=== PATIENT | male | born 1985 | race American Indian/Alaskan Native ===

== ENCOUNTER 2021-08-17 12:51 | Inpatient (IN) | payer SELFPAY ==
--- NOTE | 2021-08-17 16:23 | Emergency Department Report ---
ED General Adult HPI - General Stated complaint: CHEST PAIN Time Seen by Provider: 08/17/21 16:23 - History of Present Illness Initial comments: Patient presents secondary to chest pain. He has had intermittent chest pain for the last several days. He describes it as "a funny feeling" in the left chest. He states his left arm feels like he has been lifting weights. Last night, his symptoms were constant. They have been constant starting last night and into today. He has not noticed any aggravating or alleviating factors. He does not feel short of breath. There is no cough or congestion. There is no travel or trauma. He has had no vomiting or diarrhea. He states that he just was not feeling right and decided he should come here to get seen. Is never had symptoms like this before. - Related Data Allergies Allergy/AdvReac Type Severity Reaction Status Date / Time cephalexin [From Keflex] Allergy Rash Verified 08/17/21 16:24 ED Review of Systems ROS: Stated complaint: CHEST PAIN Other details as noted in HPI Comment: All other systems reviewed and negative Constitutional: denies: fever Eyes: denies: vision change ENT: denies: epistaxis Respiratory: denies: cough Cardiovascular: as per HPI Endocrine: denies: unexplained weight loss Gastrointestinal: denies: abdominal pain Genitourinary: denies: dysuria Musculoskeletal: denies: back pain Skin: denies: rash Neurological: denies: headache Hematological/Lymphatic: denies: easy bruising ED Past Medical Hx - Past Medical History Previous Medical History?: No - Family History Family history: no significant ED Physical Exam - General Limitations: No Limitations, Other (Pulse ox noted and normal) General appearance: alert, in no apparent distress - Head Head exam: Present: atraumatic, normocephalic - Eye Eye exam: Present: normal appearance, EOMI - ENT ENT exam: Present: normal orophraynx, TM's normal bilaterally - Neck Neck exam: Present: normal inspection. Absent: meningismus - Respiratory Respiratory exam: Present: normal lung sounds bilaterally. Absent: respiratory distress - Cardiovascular Cardiovascular Exam: Present: regular rate, normal rhythm - GI/Abdominal GI/Abdominal exam: Present: soft. Absent: distended, tenderness - Extremities Exam Extremities exam: Absent: calf tenderness - Back Exam Back exam: Absent: CVA tenderness (R), CVA tenderness (L) - Neurological Exam Neurological exam: Present: alert, oriented X3, CN II-XII intact, normal gait - Psychiatric Psychiatric exam: Present: normal affect, normal mood - Skin Skin exam: Present: warm, dry ED Course Vital Signs 08/17/21 16:24 Temperature 98.9 F Pulse Rate 48 L Respiratory 18 Rate Blood Pressure 161/90 [Left] O2 Sat by Pulse 100 Oximetry - Reevaluation(s) Reevaluation #1: 08/17/21 16:23 Labs ordered. Reevaluation #2: 08/17/21 16:47 EKG was noted. This was discussed with the auger supervisor, Dr. Thompson. He reviewed the EKG. He does have ST elevation in the setting of Q waves. We have decided to activate the [facility] and treat this as a STEMI. Reevaluation #3: 08/17/21 16:56 Patient was updated. Hospitalist was notified as well. Medications requested by Dr. Hollis, interventional cardiology, included heparin 5000 unit bolus, P lavix 600 mg, and aspirin 325 mg. ED Medical Decision Making - Lab Data Result diagrams: 08/17/21 16:35 - EKG Data -: EKG Interpreted by Me - EKG Data Interpretation: acute SC 08/17/21 16:57 EKG shows a normal sinus rhythm that is bradycardic rate. Patient has ST elevation in 2, 3, aVF with Q waves in [address] is ST depression in 1 and aVL. There is no old EKG for comparison. QRS and QT corrected intervals were normal. FL interval was normal. - Medical Decision Making Patient presents with intermittent chest pain until last night which became constant. He does have HIV. There is no clinical evidence of pneumonia or pneumothorax. He does not have a pulse deficit with suggest aortic dissection. He has no travel suggestive of PE. He does have EKG changes that are concerning for ACS and STEMI. This is been discussed and reviewed with the post office markup clerk on-call. Patient is being taken emergently to the Director Of [facility]. Critical Care Time: Yes (30 minutes exclusive of all procedures) Critical care attestation.: If time is entered above; I have spent that time in minutes in the direct care of this critically ill patient, excluding procedure time. ED Disposition Clinical Impression: Left-sided chest pain, STEMI (ST elevation myocardial infarction) Disposition: 09 ADMITTED INPATIENT Is pt being admited?: Yes Condition: Stable Instructions: Nonspecific Chest Pain, Adult
[2021-08-17] MEDS ORDERED: ASPIRIN 325 MG TAB PO ONE (16:48)
[2021-08-17] MEDS ORDERED: CLOPIDOGREL 300 MG TAB PO ONE (16:48)
[2021-08-17] MEDS ORDERED: HEPARIN 10,000 UNITS/10 ML VIAL IV PRN (16:49)
[2021-08-17] MEDS ORDERED: HEPARIN 1,000 UNIT/1 ML VIAL IV ONE (16:49)
[2021-08-17 16:52] LABS: Basophils % (Auto) 0.5 % (0.0-1.8); Eosinophils % (Auto) 0.1 % (0.0-4.3); Hematocrit 46.8 % (35.5-45.6); Hemoglobin 15.6 gm/dl (11.8-15.2); Lymphocytes # (Auto) 1.8 K/mm3 (1.2-5.4); Lymphocytes % (Auto) 22.7 % (13.4-35.0); Mean Corpuscular HGB Conc 33 % (32-34); Mean Corpuscular Volume 95 fl (84-94); Monocytes # (Auto) 0.8 K/mm3 (0.0-0.8); Monocytes % (Auto) 9.5 % (0.0-7.3); Platelet Count 159 K/mm3 (140-440); Red Blood Count 4.92 M/mm3 (3.65-5.03); Red Cell Distribution Width 14.1 % (13.2-15.2)
--- NOTE | 2021-08-17 17:00 | XRay Report ---
CHEST 2 VIEWS INDICATION / CLINICAL INFORMATION: cp. COMPARISON: None available. FINDINGS: SUPPORT DEVICES: None. HEART / MEDIASTINUM: No significant abnormality. LUNGS / PLEURA: No significant pulmonary or pleural abnormality. No pneumothorax. ADDITIONAL FINDINGS: No significant additional findings. IMPRESSION: 1. No acute findings. Signer Name: Neeraj Lopez MD Signed: 08/17/2021 4:56 PM Workstation Name: [id number]
[2021-08-17 17:08] LABS: BUN/Creatinine Ratio 10; Blood Urea Nitrogen 12 mg/dL (9-20); Calcium 9.5 mg/dL (8.4-10.2); Hemolysis Index 29
[2021-08-17 17:25] LABS: Chol/HDL Ratio 3.89 %; HDL Cholesterol 46 mg/dL (40-59); LDL Cholesterol,Direct 125 mg/dL (50-130)
[2021-08-17] MEDS ORDERED: NITROGLYCERIN DRIP 50 MG/250 ML BOTTLE ONE (17:33)
[2021-08-17] MEDS ORDERED: ATROPINE 0.1% (1 MG/10 ML) CARDIAC SYRINGE ONE (17:33)
[2021-08-17] MEDS ORDERED: LIDOCAINE (2%) 20 MG/1 ML VIAL 20 ML MDV INFILTRATI ONE (17:34)
[2021-08-17] MEDS ORDERED: VERAPAMIL 5 MG/2 ML INJ ONE (17:34)
[2021-08-17 17:39] LABS: INR 0.99 (0.87-1.13)
[2021-08-17 17:40] LABS: Partial Thromboplastin Time 26.2 Sec. (24.2-36.6)
[2021-08-17] MEDS ORDERED: SODIUM CHLORIDE 0.9% 1000 ML 1,000 ML ONE (17:42)
[2021-08-17] MEDS: HEPARIN 10,000 UNITS/10 ML VIAL ONE ×3 (17:48→18:05)
[2021-08-17] MEDS: fentaNYL 100 MCG/2 ML INJ ONE ×2 (17:50→18:15)
[2021-08-17] MEDS: MIDAZOLAM 2 MG/2 ML INJ ONE ×2 (17:50→18:15)
[2021-08-17] MEDS ORDERED: TIROFIBAN/NS 12,500 MCG/250 ML BAG IV ONE (18:02)
[2021-08-17] MEDS ORDERED: HYDROcodone/ACETAMINOPHEN 5-325 MG TAB PO PRN (18:39)
[2021-08-17] MEDS ORDERED: MORPHINE 2 MG/1 ML INJ IV PRN (18:45)
[2021-08-17] MEDS ORDERED: SODIUM CHLORIDE 0.9% 1000 ML 1,000 ML IV SCH (18:45)
[2021-08-17] MEDS ORDERED: ONDANSETRON 4 MG/2 ML INJ IV PRN (18:45)
[2021-08-17] MEDS ORDERED: ACETAMINOPHEN 325 MG TAB PO PRN (18:45)
[2021-08-17] MEDS ORDERED: HYDROmorphone 1 MG/1 ML INJ IV PRN (18:45)
[2021-08-17] MEDS ORDERED: METOCLOPRAMIDE 10 MG/2 ML INJ IV PRN (18:45)
--- NOTE | 2021-08-17 18:45 | History and Physical Report ---
History of Present Illness Date of examination: 08/17/21 Date of admission: 08/17/21 16:58 Chief complaint: Chest pain for 2 days History of present illness: 36-year-old with no significant past medical history presents with chest pain for 2 days. Chest pain is retrosternal and nearly constant. More constant since last night. Radiated to her left arm. 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 No diaphoresis no. No aggravating or relieving factors. No strong fa vandana history of coronary artery disease. Feels weak. Chest pain is about 8 on a scale of 1-10. - Past Medical History Previous Medical History?: No - Family History Family history: no significant Review of Systems ROS: Stated complaint: CHEST PAIN Other details as noted in HPI Comment: All other systems reviewed and negative Constitutional: denies: fever Eyes: denies: vision change ENT: denies: epistaxis Respiratory: denies: cough Cardiovascular: as per HPI Endocrine: denies: unexplained weight loss Gastrointestinal: denies: abdominal pain Genitourinary: denies: dysuria Musculoskeletal: denies: back pain Skin: denies: rash Neurological: denies: headache Hematological/Lymphatic: denies: easy bruising Medications and Allergies Allergies Allergy/AdvReac Type Severity Reaction Status Date / Time cephalexin [From Keflex] Allergy Rash Verified 08/17/21 16:24 Home Medications Medication Instructions Recorded Confirmed Last Taken Type Abacavir/Lamivudine/Zidovudine 1 tab PO QDAY 08/18/21 08/18/21 1 Day Ago History [Trizivir Tablet] ~08/17/21 Active Meds: Active Medications Hydrocodone Bitart/Acetaminophen (Hydrocodone/Acetaminophen 5-325 Mg Tab) 1 each PO Q6H PRN PRN Reason: Pain, Moderate (4-6) Aspirin (Aspirin Ec 325 Mg Tab) 325 mg PO QDAY [facility] Atorvastatin Calcium (Atorvastatin 40 Mg Tab) 40 mg PO QHS JESSICA Clopidogrel Bisulfate (Clopidogrel 75 Mg Tab) 75 mg PO QDAY [facility] Heparin Sodium (Porcine) (Heparin 10,000 Units/10 Ml Vial) 2,600 unit 40 unit/kg (2600 unit) IV Q6H PRN PRN Reason: Anti-Xa Assay less than 0.1 un Sodium Chloride (Nacl 0.9% 1000 Ml) 1,000 mls @ 100 mls/hr IV DIRECT JESSICA Stop: 08/18/21 06:44 Tirofiban/Sodium Chloride (Aggrastat Drip (12.5 Mg/250 Ml)) 12,500 mcg in 250 mls @ 0 mls/hr IV DIRECT JESSICA; Protocol Stop: 08/18/21 12:59 Isosorbide Mononitrate (Isosorbide Mononitrate Er 30 Mg Tab) 30 mg PO QDAY JESSICA Lisinopril (Lisinopril 5 Mg Tab) 2.5 mg PO QDAY JESSICA Exam - Constitutional Vitals: Temp Pulse Resp BP Pulse Ox 98.9 F 48 L 18 161/90 100 08/17/21 16:24 08/17/21 16:24 08/17/21 16:24 08/17/21 16:24 08/17/21 16:24 General appearance: Present: no acute distress, well-nourished - EENT Eyes: Present: PERRL ENT: hearing intact, clear oral mucosa - Neck Neck: Present: supple, normal ROM - Respiratory Respiratory effort: normal Respiratory: bilateral: CTA - Cardiovascular Heart rate: 78 Rhythm: regular Heart Sounds: Present: S1 & S2. Absent: rub, click - Extremities Extremities: pulses symmetrical, No edema Peripheral Pulses: within normal limits - Abdominal General gastrointestinal: Present: soft, non-tender, non-distended, normal bowel sounds Male genitourinary: Present: normal - Integumentary Integumentary: Present: clear, warm, dry - Musculoskeletal Musculoskeletal: gait normal, strength equal bilaterally - Psychiatric Psychiatric: appropriate mood/affect, intact judgment & insight - Neurologic Neurologic: CNII-XII intact, moves all extremities HEART Score - HEART Score History: Highly suspicious Age: < 45 Risk factors: No known risk factors Troponin: Troponin T 0.651 ng/mL (0.00-0.029) H* 08/17/21 16:35 Troponin: > 3x normal limit - Critical Actions Critical Actions: >7 pts:50-65% risk of adverse cardiac event. Early invasive measures Results - Labs CBC & Chem 7: 08/18/21 07:50 08/18/21 07:50 Labs: Laboratory Last Values WBC 8.1 K/mm3 (4.5-11.0) 08/17/21 16:35 RBC 4.92 M/mm3 (3.65-5.03) 08/17/21 16:35 Hgb 15.6 gm/dl (11.8-15.2) H 08/17/21 16:35 Hct 46.8 % (35.5-45.6) H 08/17/21 16:35 MCV 95 fl (84-94) H 08/17/21 16:35 MCH 32 pg (28-32) 08/17/21 16:35 MCHC 33 % (32-34) 08/17/21 16:35 RDW 14.1 % (13.2-15.2) 08/17/21 16:35 Plt Count 159 K/mm3 (140-440) 08/17/21 16:35 Lymph % (Auto) 22.7 % (13.4-35.0) 08/17/21 16:35 [place] % (Auto) 9.5 % (0.0-7.3) H 08/17/21 16:35 Eos % (Auto) 0.1 % (0.0-4.3) 08/17/21 16:35 Baso % (Auto) 0.5 % (0.0-1.8) 08/17/21 16:35 Lymph # (Auto) 1.8 K/mm3 (1.2-5.4) 08/17/21 16:35 [place] # (Auto) 0.8 K/mm3 (0.0-0.8) 08/17/21 16:35 Eos # (Auto) 0.0 K/mm3 (0.0-0.4) 08/17/21 16:35 Baso # (Auto) 0.0 K/mm3 (0.0-0.1) 08/17/21 16:35 Seg Neutrophils % 67.2 % (40.0-70.0) 08/17/21 16:35 Seg Neutrophils # 5.4 K/mm3 (1.8-7.7) 08/17/21 16:35 PT 14.2 Sec. (12.2-14.9) 08/17/21 17:07 INR 0.99 (0.87-1.13) 08/17/21 17:07 APTT 26.2 Sec. (24.2-36.6) 08/17/21 17:07 Sodium 139 mmol/L (137-145) 08/17/21 16:35 Potassium 3.9 mmol/L (3.6-5.0) 08/17/21 16:35 Chloride 103.7 mmol/L (98-107) 08/17/21 16:35 Carbon Dioxide 22 mmol/L (22-30) 08/17/21 16:35 Anion Gap 17 mmol/L 08/17/21 16:35 BUN 12 mg/dL (9-20) 08/17/21 16:35 Creatinine 1.2 mg/dL (0.8-1.3) 08/17/21 16:35 Estimated GFR > 60 ml/min 08/17/21 16:35 BUN/Creatinine Ratio 10 % 08/17/21 16:35 Glucose 116 mg/dL (75-100) H 08/17/21 16:35 Calcium 9.5 mg/dL (8.4-10.2) 08/17/21 16:35 Troponin T 0.651 ng/mL (0.00-0.029) H* 08/17/21 16:35 Triglycerides 69 mg/dL (2-149) 08/17/21 16:35 Cholesterol 179 mg/dL (50-199) 08/17/21 16:35 LDL Cholesterol Direct 125 mg/dL (50-130) 08/17/21 16:35 HDL Cholesterol 46 mg/dL (40-59) 08/17/21 16:35 Cholesterol/HDL Ratio 3.89 % 08/17/21 16:35 Short CBC 08/17/21 Range/Units 16:35 WBC 8.1 (4.5-11.0) K/mm3 Hgb 15.6 H (11.8-15.2) gm/dl Hct 46.8 H (35.5-45.6) % Plt Count 159 (140-440) K/mm3 BMP 08/17/21 16:35 Sodium 139 Potassium 3.9 Chloride 103.7 Carbon Dioxide 22 BUN 12 Creatinine 1.2 Glucose 116 H Calcium 9.5 Cardiac Enzymes 08/17/21 08/17/21 08/17/21 Range/Units 16:35 19:37 23:28 Troponin T 0.651 H* 2.120 H* D 3.000 H* D (0.00-0.029) ng/mL - Imaging and Cardiology EKG: report reviewed Imaging and Cardiology: 12/31/21 16:57 EKG shows a normal sinus rhythm that is bradycardic rate. Patient has ST elevation in 2, 3, aVF with Q waves in 3 and aVF. There is ST depression in 1 and aVL. There is no old EKG for comparison. QRS and QT corrected intervals were normal. OR interval was normal. Assessment and Plan Assessment and plan: Critical care statement The high probability OF a clinically significant sudden or life-threatening deterioration of the cardiorespiratory system and endocrine system required my full and direct attention, intervention and postoperative management. The aggregate critical care time was 40 minutes. The time is in addition to time spent performing reported procedures but includes the followin: Data review and interpretation 2: Patient assessment and monitoring of vital signs 3: Documentation 4:: Medication orders and management Advance Directives: Yes (Full code) VTE prophylaxis?: Chemical Plan of care discussed with patient/family: Yes - Patient Problems (1) STEMI (ST elevation myocardial infarction) Current Visit: Yes Status: Acute Qualifiers: Involved coronary artery: right coronary artery Qualified Code(s): I21.11 - ST elevation (STEMI) myocardial infarction involving right coronary artery Plan to address problem: Patient was taken to the Layout Worker and had cardiac cath. Patient had extensive right coronary artery disease. Patient had stents placed Patient admitted to ICU for further medical treatment (2) Elevated troponin Current Visit: Yes Status: Acute Plan to address problem: Indicating acute RI Patient may need echocardiogram for ejection fraction (3) DVT prophylaxis Current Visit: Yes Status: Acute Plan to address problem: On anticoagulation GI prophylaxis (4) Advance care planning Current Visit: Yes Status: Acute Plan to address problem: Disease education conducted, care plan discussed, diagnosis discussed, patient is full code patient acknowledges understanding and agreement with care plan +30 minutes
--- NOTE | 2021-08-17 18:48 | Consultation ---
History of Present Illness Consult date: 08/17/21 Consult reason: other (Acute inferior STEMI) History of present illness: Patient is a 36-year-old man with HIV disease, no prior cardiac history, presented to the emergency room with 3 days of intermittent chest pain. ECG was sinus bradycardia with an acute inferior ST elevation myocardial infarction. STEMI protocol was activated. At emergency cardiac catheterization we found occlusive stenosis of the mid right coronary artery, followed by another long segment of severe distal disease. Primary angioplasty was performed successfully with stenting of the mid vessel as well as additional stenting of the secondary distal disease. There was an excellent angiographic result and hindu of LUCIA-3 flow. Procedure was well-tolerated by the patient and there are no complications. He is admitted to the CCU for post [facility] supportive management. We have started him on guideline directed medical therapy except for beta- chari therapy which is held at this time due to the patient's persistent sinus bradycardia. Past History Past Medical History: HIV/AIDS Medications and Allergies Allergies Allergy/AdvReac Type Severity Reaction Status Date / Time cephalexin [From Keflex] Allergy Rash Verified 08/17/21 16:24 Active Meds: Active Medications Heparin Sodium (Porcine) (Heparin 10,000 Units/10 Ml Vial) 2,600 unit 40 unit/kg (2600 unit) IV Q6H PRN PRN Reason: Anti-Xa Assay less than 0.1 un Review of Systems Cardiovascular: chest pain, shortness of breath, no orthopnea, no palpitations, no rapid/irregular heart beat, no edema, no syncope, no lightheadedness Physical Examination Vital Signs Temp Pulse Resp BP Pulse Ox 98.9 F 48 L 18 161/90 100 08/17/21 16:24 08/17/21 16:24 08/17/21 16:24 08/17/21 16:24 08/17/21 16:24 General appearance: no acute distress HEENT: Positive: PERRL Neck: Positive: neck supple Cardiac: Positive: Reg Rate and Rhythm Lungs: Positive: clear to auscultation Neuro: Positive: Grossly Intact Abdomen: Positive: Soft Male genitourinary: Positive: deferred Skin: Positive: Clear Extremities: Absent: edema Results 08/17/21 16:35 08/17/21 16:35 Coagulation 08/17/21 Range/Units 17:07 PT 14.2 (12.2-14.9) Sec. INR 0.99 (0.87-1.13) APTT 26.2 (24.2-36.6) Sec. Lipids 08/17/21 Range/Units 16:35 Triglycerides 69 (2-149) mg/dL Cholesterol 179 (50-199) mg/dL HDL Cholesterol 46 (40-59) mg/dL Cholesterol/HDL Ratio 3.89 % CBC 08/17/21 Range/Units 16:35 WBC 8.1 (4.5-11.0) K/mm3 RBC 4.92 (3.65-5.03) M/mm3 Hgb 15.6 H (11.8-15.2) gm/dl Hct 46.8 H (35.5-45.6) % Plt Count 159 (140-440) K/mm3 Lymph # (Auto) 1.8 (1.2-5.4) K/mm3 [place] # (Auto) 0.8 (0.0-0.8) K/mm3 Eos # (Auto) 0.0 (0.0-0.4) K/mm3 Baso # (Auto) 0.0 (0.0-0.1) K/mm3 Comprehensive Metabolic Panel 08/17/21 Range/Units 16:35 Sodium 139 (137-145) mmol/L Potassium 3.9 (3.6-5.0) mmol/L Chloride 103.7 (98-107) mmol/L Carbon Dioxide 22 (22-30) mmol/L BUN 12 (9-20) mg/dL Creatinine 1.2 (0.8-1.3) mg/dL Glucose 116 H (75-100) mg/dL Calcium 9.5 (8.4-10.2) mg/dL EKG interpretations - Telemetry EKG Rhythm: Sinus Bradycardia (With acute inferior STEMI) Assessment and Plan - Patient Problems (1) STEMI (ST elevation myocardial infarction) Current Visit: Yes Status: Acute Plan to address problem: Acute inferior ST elevation myocardial infarction treated with emergency cardiac catheterization and primary angioplasty and stenting of severely occluded right coronary artery. Patient is admitted to the CCU on dual antiplatelet therapy with Plavix and aspirin. Due to extensive intraluminal thrombus, we will also treat him with Aggrastat per protocol for 18 hours.
[2021-08-17] MEDS ORDERED: TIROFIBAN/NS 12,500 MCG/250 ML BAG IV SCH (19:00)
--- NOTE | 2021-08-17 19:38 | Cardiac Catherization Report ---
DATE OF SERVICE: 08/17/2021 REASON FOR PROCEDURE: The patient is a 36-year-old man with HIV disease, no prior cardiac history, presented to the Emergency Room with intermittent chest pain. EKG on presentation showed an acute ST elevation inferior wall myocardial infarction, and the STEMI protocol was activated. PROCEDURES: 1. Left heart catheterization. 2. Selective left and right coronary angiography. 3. Left ventricular angiography. 4. Coronary angioplasty and stenting of the mid and distal right coronary artery. 5. Sedation time start 1750 hours, end 1830 hours. DESCRIPTION OF PROCEDURE: The patient was prepped and draped in a sterile fashion under emergency protocol. The right radial cath site was prepped and draped after a negative Denny's test. The right radial artery was entered using Seldinger technique followed by placement of a 6-Bulgarian hydrophilic sheath. Routine radial cocktail was administered via the sheath. Selective left and right coronary angiography was performed, using a #3.5 left Thien for left coronary angiography. After left coronary angiography, we then exchanged for a #4 right Thien guiding catheter for right coronary angiography. The angiograms were reviewed. CORONARY ANGIOGRAPHY: Left main coronary artery was short and angiographically normal. The left anterior descending artery contained mild nonobstructive disease in its mid segment, with up to 30-50% luminal narrowing. The circumflex artery was notable for moderate to moderately severe diffuse atherosclerosis of its distal segment, in a very small caliber, less than 2 mm distal vessel. The large, more proximal mid obtuse marginal was free of significant disease. The right coronary artery was a large caliber, dominant vessel. There was a long, 99% stenosis of the mid segment, with evidence of extensive intraluminal thrombus. There was LUCIA grade 3 antegrade flow. In addition, there was another long, 80% secondary stenosis of the distal AV groove vessel extending from the origin of the posterior descending branch. CORONARY ANGIOPLASTY: We then introduced a Display Fabricator 250 guidewire into the vessel, down to the distal posterolateral branch. Using a 3.0 mm balloon catheter, we then predilated the stenosis of the mid vessel. Serial, 4.5 mm drug-eluting stents were then deployed to the mid vessel to optimal pressures. Following treatment of the mid lesion, we then deployed a Display Fabricator 50 guidewire into the right posterior descending branch, followed by subsequent coronary stenting of the distal segment. The wires were then removed, post-intervention angiograms revealed an excellent angiographic result, zero residual stenosis on both treated sites and LUCIA 3 flow restored in the vessel. Post coronary intervention, the right Thien catheter was then withdrawn, using a J guidewire directed into the left ventricle, using a hand injection a left ventriculogram was obtained. The catheter was then withdrawn across the aortic valve and aortic valve gradient recorded. The catheters were then withdrawn and sheath removed and hemostasis achieved using a TR band. The patient was returned to the postprocedure unit in stable condition. There were no complications. FINDINGS: The systolic blood pressure was 133/76, there was no gradient across the aortic valve, left ventricular end-diastolic pressure was less than 10. CONCLUSION: 1. The patient admitted with acute inferior STEMI. 2. Occlusive disease of the mid right coronary artery was the infarct related lesion. 3. Successful primary angioplasty and stenting of the mid right coronary artery, successful stenting of a secondary lesion in the distal AV groove, right coronary. 4. Left ventricular ejection fraction was 40-50%. 5. Medical management is recommended for nonocclusive disease of the mid LAD, and [id number] atherosclerosis of the small caliber distal circumflex. TID: [id number] RECEIPT: [id number] CA/TAB
[2021-08-17] MEDS: FAMOTIDINE 20 MG/2 ML INJ IV SCH (21:29)
--- NOTE | 2021-08-18 03:06 | XRay Report ---
CHEST 1 VIEW INDICATION / CLINICAL INFORMATION: post pci. COMPARISON: 08/17/2021 FINDINGS: SUPPORT DEVICES: None. HEART / MEDIASTINUM: No significant abnormality. LUNGS / PLEURA: No significant pulmonary or pleural abnormality. No pneumothorax. ADDITIONAL FINDINGS: No significant additional findings. IMPRESSION: 1. No acute pulmonary or pleural disease. No interval change. Signer Name: Natacha Smart MD Signed: 08/18/2021 3:02 AM Workstation Name: [id number]
[2021-08-18 08:51] LABS: Basophils % (Auto) 0.2 % (0.0-1.8); Eosinophils % (Auto) 0.1 % (0.0-4.3); Hematocrit 40.3 % (35.5-45.6); Hemoglobin 13.6 gm/dl (11.8-15.2); Lymphocytes # (Auto) 2.6 K/mm3 (1.2-5.4); Mean Corpuscular HGB Conc 34 % (32-34); Mean Corpuscular Volume 94 fl (84-94); Monocytes # (Auto) 1.5 K/mm3 (0.0-0.8); Monocytes % (Auto) 15.6 % (0.0-7.3); Platelet Count 129 K/mm3 (140-440); Red Cell Distribution Width 13.9 % (13.2-15.2)
[2021-08-18 09:04] LABS: BUN/Creatinine Ratio 9; Blood Urea Nitrogen 10 mg/dL (9-20); Hemolysis Index 7
[2021-08-18] MEDS: ASPIRIN EC 325 MG TAB PO SCH (10:14)
[2021-08-18] MEDS: FAMOTIDINE 20 MG/2 ML INJ IV SCH ×2 (10:14→21:31)
[2021-08-18] MEDS: LISINOPRIL 5 MG TAB PO SCH (10:15)
[2021-08-18] MEDS: CLOPIDOGREL 75 MG TAB PO SCH (10:15)
--- NOTE | 2021-08-18 11:38 | Progress Note ---
Assessment and Plan - Patient Problems (1) Hyperlipidemia Current Visit: Yes Status: Acute (2) STEMI (ST elevation myocardial infarction) Current Visit: Yes Status: Acute Qualifiers: Involved coronary artery: right coronary artery Qualified Code(s): I21.11 - ST elevation (STEMI) myocardial infarction involving right coronary artery Subjective Date of service: 08/18/21 Interval history: NO C/O Objective Vital Signs Temp Pulse Pulse Pulse Resp BP BP 08/18/21 10:15 52 L 127/79 08/18/21 10:03 08/18/21 10:00 52 L 11 L 127/79 08/18/21 09:01 49 L 15 130/75 08/18/21 08:00 46 L 47 L 18 116/75 08/18/21 07:00 46 L 14 104/71 08/18/21 06:00 50 L 15 108/59 08/18/21 05:00 76 19 111/63 08/18/21 04:00 82 60 16 113/50 08/18/21 03:29 98.7 F 08/18/21 03:00 55 L 14 125/75 08/18/21 02:00 47 L 17 114/74 08/18/21 01:00 54 L 14 114/76 08/18/21 00:14 50 L 18 106/69 08/18/21 00:00 53 L 60 24 106/69 08/17/21 23:28 100.1 F H 08/17/21 23:00 54 L 19 110/68 08/17/21 22:00 48 L 13 117/82 08/17/21 21:00 51 L 15 146/94 08/17/21 20:00 97.9 F 62 60 14 143/90 08/17/21 19:57 60 143/90 08/17/21 19:22 55 L 15 08/17/21 17:10 47 L 15 08/17/21 16:24 98.9 F 48 L 18 161/90 Pulse Ox 08/18/21 10:15 08/18/21 10:03 99 08/18/21 10:00 98 08/18/21 09:01 96 08/18/21 08:00 97 08/18/21 07:00 98 08/18/21 06:00 98 08/18/21 05:00 100 01/01/22 04:00 100 08/18/21 03:29 08/18/21 03:00 99 08/18/21 02:00 98 08/18/21 01:00 97 08/18/21 00:14 98 08/18/21 00:00 97 08/17/21 23:28 08/17/21 23:00 99 08/17/21 22:00 98 08/17/21 21:00 97 08/17/21 20:00 100 08/17/21 19:57 08/17/21 19:22 100 08/17/21 17:10 100 08/17/21 16:24 100 - Physical Examination General: No Apparent Distress HEENT: Positive: PERRL, Other (U/R) Neck: Positive: neck supple Cardiac: Positive: Reg Rate and Rhythm, S4 Lungs: Positive: clear to auscultation Neuro: Positive: Grossly Intact Abdomen: Positive: Soft Skin: Positive: Clear Extremities: Present: normal. Absent: edema - Labs and Meds Coagulation 08/17/21 Range/Units 17:07 PT 14.2 (12.2-14.9) Sec. INR 0.99 (0.87-1.13) APTT 26.2 (24.2-36.6) Sec. Lipids 08/17/21 Range/Units 16:35 Triglycerides 69 (2-149) mg/dL Cholesterol 179 (50-199) mg/dL HDL Cholesterol 46 (40-59) mg/dL Cholesterol/HDL Ratio 3.89 % CBC 08/17/21 08/18/21 Range/Units 16:35 07:50 WBC 8.1 10.0 (4.5-11.0) K/mm3 RBC 4.92 4.30 (3.65-5.03) M/mm3 Hgb 15.6 H 13.6 (11.8-15.2) gm/dl Hct 46.8 H 40.3 D (35.5-45.6) % Plt Count 159 129 L (140-440) K/mm3 Lymph # (Auto) 1.8 2.6 (1.2-5.4) K/mm3 [place] # (Auto) 0.8 1.5 H (0.0-0.8) K/mm3 Eos # (Auto) 0.0 0.0 (0.0-0.4) K/mm3 Baso # (Auto) 0.0 0.0 (0.0-0.1) K/mm3 Comprehensive Metabolic Panel 08/17/21 08/18/21 Range/Units 16:35 07:50 Sodium 139 140 (137-145) mmol/L Potassium 3.9 4.4 (3.6-5.0) mmol/L Chloride 103.7 106.6 (98-107) mmol/L Carbon Dioxide 22 21 L (22-30) mmol/L BUN 12 10 (9-20) mg/dL Creatinine 1.2 1.1 (0.8-1.3) mg/dL Glucose 116 H 116 H (75-100) mg/dL Calcium 9.5 9.0 (8.4-10.2) mg/dL - Imaging and Cardiology EKG: report reviewed
--- NOTE | 2021-08-18 12:43 | Progress Note ---
Assessment and Plan Assessment and plan: This is a 36 year old male with HIV admitted with SEMI s/p PCI and stent placement x2 Neuro: NAD -Analgesics as needed -Reorienation as needed -Avoid delirium -Maintain sleep -wake cycle Cardio: Anterior STEMI -Cardiology consulted, apprecaite recommendations -s/p PCI with stent x2 to RCA -s/p aggrastat gtt -Plavix and Aspirin -Lipitor, lisinopril, -EKG prn -Nitro and Morphine prn for chest pain -Lipid panel WNL Resp: NAD -SpO2 monitoring per protocol -RA -Supplemental oxygenation as needed -Pulmanory hygenie GI: NAD -cardiac diet -24 hours -38 ml -PPI -BR: Senna : Metabolic acidosis -Voiding into urinal -Trend BMP -Intervene as needed Endo: NAD -Avoid hypoglycemia ID: h/o HIV -restart home meds -f/u with HIV/ID outpatient Heme: NAD -Trend CBC -Transfuse for hbg < 7 -SCDs to BLE while in bed The high probability of a clinically significant, sudden or life threatening deterioration of the [cardio] system(s) required my full and direct attention, intervention and personal management. The aggregate critical care time was [60] minutes. This time is in addition to time spent performing reported procedures but includes the following: [x] Data Review and interpretation [x] Patient assessment and monitoring of vital signs [x] Documentation [x] Medication orders and management Disposition Plan: transfer to floor Total Time Spent with Patient (Minutes): 60 History Interval history: This is a 36-year-old male with HIV who presented to emergency department on 08/17 with complaints of intermittent retrosternal chest pain for the past 3 days with radiation to his left arm, diaphoresis and rated at a 8 on a scale of 1-10. In the emergency department course and he was extubated and cardiology was consulted. Patient was emergently taken to cardiac veterinary laboratory diagnostician and found to have occlusive stenosis of the right MCA and primary angioplasty was performed with stent placement x2. Patient was admitted to the ICU postop with consult to [facility]. 08/18/2020: Patient does not complain of any chest pain, Aggrastat drip to complete in the early afternoon. Cardiology has cleared the patient to transfer to telemetry today. Hospitalist Physical - Constitutional Vitals: Temp Pulse Resp BP Pulse Ox 98.7 F 52 L 11 L 127/79 99 08/18/21 03:29 08/18/21 10:15 08/18/21 10:00 08/18/21 10:15 08/18/21 10:03 General appearance: Present: no acute distress, well-nourished - EENT Eyes: Present: PERRL, EOM intact ENT: hearing intact, clear oral mucosa, dentition normal - Neck Neck: Present: normal ROM - Respiratory Respiratory effort: normal Respiratory: bilateral: CTA - Cardiovascular Rhythm: regular Heart Sounds: Present: S1 & S2. Absent: systolic murmur, diastolic murmur - Extremities Extremities: no ischemia, pulses intact, pulses symmetrical, No edema, normal temperature, normal color, Full ROM Peripheral Pulses: within normal limits - Abdominal General gastrointestinal: soft, non-tender, non-distended, normal bowel sounds - Integumentary Integumentary: Present: warm, dry - Psychiatric Psychiatric: cooperative - Neurologic Neurologic: CNII-XII intact, no focal deficits, moves all extremities - Allied Health Allied health notes reviewed: nursing, RT, social work HEART Score - HEART Score Age: < 45 Risk factors: No known risk factors Troponin: Troponin T 1.540 ng/mL (0.00-0.029) H* D 08/18/21 07:50 Troponin: > 3x normal limit - Critical Actions Critical Actions: >7 pts:50-65% risk of adverse cardiac event. Early invasive measures Results - Labs CBC & Chem 7: 08/18/21 07:50 08/18/21 07:50 Labs: Laboratory Last Values WBC 10.0 K/mm3 (4.5-11.0) 08/18/21 07:50 RBC 4.30 M/mm3 (3.65-5.03) 08/18/21 07:50 Hgb 13.6 gm/dl (11.8-15.2) 08/18/21 07:50 Hct 40.3 % (35.5-45.6) D 08/18/21 07:50 MCV 94 fl (84-94) 08/18/21 07:50 MCH 32 pg (28-32) 08/18/21 07:50 MCHC 34 % (32-34) 08/18/21 07:50 RDW 13.9 % (13.2-15.2) 08/18/21 07:50 Plt Count 129 K/mm3 (140-440) L 08/18/21 07:50 Lymph % (Auto) 26.0 % (13.4-35.0) 08/18/21 07:50 [place] % (Auto) 15.6 % (0.0-7.3) H 08/18/21 07:50 Eos % (Auto) 0.1 % (0.0-4.3) 08/18/21 07:50 Baso % (Auto) 0.2 % (0.0-1.8) 08/18/21 07:50 Lymph # (Auto) 2.6 K/mm3 (1.2-5.4) 08/18/21 07:50 [place] # (Auto) 1.5 K/mm3 (0.0-0.8) H 08/18/21 07:50 Eos # (Auto) 0.0 K/mm3 (0.0-0.4) 08/18/21 07:50 Baso # (Auto) 0.0 K/mm3 (0.0-0.1) 08/18/21 07:50 Seg Neutrophils % 58.1 % (40.0-70.0) 08/18/21 07:50 Seg Neutrophils # 5.8 K/mm3 (1.8-7.7) 08/18/21 07:50 PT 14.2 Sec. (12.2-14.9) 08/17/21 17:07 INR 0.99 (0.87-1.13) 08/17/21 17:07 APTT 26.2 Sec. (24.2-36.6) 08/17/21 17:07 Sodium 140 mmol/L (137-145) 08/18/21 07:50 Potassium 4.4 mmol/L (3.6-5.0) 08/18/21 07:50 Chloride 106.6 mmol/L (98-107) 08/18/21 07:50 Carbon Dioxide 21 mmol/L (22-30) L 08/18/21 07:50 Anion Gap 17 mmol/L 08/18/21 07:50 BUN 10 mg/dL (9-20) 08/18/21 07:50 Creatinine 1.1 mg/dL (0.8-1.3) 08/18/21 07:50 Estimated GFR > 60 ml/min 08/18/21 07:50 BUN/Creatinine Ratio 9 % 08/18/21 07:50 Glucose 116 mg/dL (75-100) H 08/18/21 07:50 Calcium 9.0 mg/dL (8.4-10.2) 08/18/21 07:50 Troponin T 1.540 ng/mL (0.00-0.029) H* D 08/18/21 07:50 Triglycerides 69 mg/dL (2-149) 08/17/21 16:35 Cholesterol 179 mg/dL (50-199) 08/17/21 16:35 LDL Cholesterol Direct 125 mg/dL (50-130) 08/17/21 16:35 HDL Cholesterol 46 mg/dL (40-59) 08/17/21 16:35 Cholesterol/HDL Ratio 3.89 % 08/17/21 16:35 Blood Type AB NEGATIVE 08/17/21 17:00 Antibody Screen Negative 08/17/21 17:00 Active Medications - Current Medications Current Medications: Generic Name Dose Route Start Last Admin Trade Name Freq PRN Reason Stop Dose Admin Acetaminophen 650 mg 08/17/21 18:45 Acetaminophen 325 Mg Tab PO Q4H PRN Pain MILD(1-3)/Fever >100.5/MILLS Hydrocodone Bitart/Acetaminophen 1 each 08/17/21 18:39 Hydrocodone/Acetaminophen 5-325 Mg Tab PO Q6H PRN Pain, Moderate (4-6) Aspirin 325 mg 08/18/21 10:00 08/18/21 10:14 Aspirin Ec 325 Mg Tab PO 325 mg QDAY JESSICA Administration Atorvastatin Calcium 40 mg 08/17/21 22:00 08/17/21 21:29 Atorvastatin 40 Mg Tab PO 40 mg QHS JESSICA Administration Clopidogrel Bisulfate 75 mg 08/18/21 10:00 08/18/21 10:15 Clopidogrel 75 Mg Tab PO 75 mg QDAY JESSICA Administration Famotidine 20 mg 08/17/21 22:00 08/18/21 10:14 Famotidine 20 Mg/2 Ml Inj IV 20 mg BID JESSICA Administration Heparin Sodium (Porcine) 2,600 unit 08/17/21 16:49 Heparin 10,000 Units/10 Ml Vial 40 unit/kg (2600 unit) IV Q6H PRN Anti-Xa Assay less than 0.1 un Hydromorphone HCl 0.5 mg 08/17/21 18:45 Hydromorphone 1 Mg/1 Ml Inj IV Q3H PRN Pain , Severe (7-10) Tirofiban/Sodium Chloride 12,500 mcg in 250 mls @ 12 mls/hr 08/17/21 19:00 Aggrastat Drip (12.5 Mg/250 Ml) IV 08/18/21 12:59 DIRECT JESSICA Protocol Per Protocol Isosorbide Mononitrate 30 mg 08/17/21 19:00 08/17/21 19:57 Isosorbide Mononitrate Er 30 Mg Tab PO 30 mg QDAY JESSICA Administration Lisinopril 2.5 mg 08/18/21 10:00 08/18/21 10:15 Lisinopril 5 Mg Tab PO 2.5 mg QDAY JESSICA Administration Metoclopramide HCl 10 mg 08/17/21 18:45 Metoclopramide 10 Mg/2 Ml Inj IV Q6H PRN Nausea And Vomiting Morphine Sulfate 2 mg 08/17/21 18:45 Morphine 2 Mg/1 Ml Inj IV Q4H PRN Pain, Moderate (4-6) Ondansetron HCl 4 mg 08/17/21 18:45 08/17/21 23:23 Ondansetron 4 Mg/2 Ml Inj IV 4 mg Q3H PRN Administration Nausea And Vomiting Sodium Chloride 10 ml 08/17/21 22:00 08/18/21 10:16 Sodium Chloride 0.9% 10 Ml Flush Syringe IV 10 ml BID JESSICA Administration Sodium Chloride 10 ml 08/17/21 18:45 Sodium Chloride 0.9% 10 Ml Flush Syringe IV PRN PRN LINE FLUSH
--- NOTE | 2021-08-18 18:16 | Electrocardiograph Report ---
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
--- NOTE | 2021-08-18 18:22 | Electrocardiograph Report ---
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 Compared to ECG 08/17/2021 16:30:29 No significant change noted. Electronically Signed On 08-18-2021 18:22:02 EST by Joce Bennett
--- NOTE | 2021-08-18 18:23 | Electrocardiograph Report ---
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 Compared to ECG 08/18/2021 07:22:28 No significant changes Electronically Signed On 08-18-2021 18:23:37 EST by Joce Bennett
[2021-08-18] MEDS ORDERED: SENNOSIDES 8.6 MG TAB PO SCH (22:00)
[2021-08-19] MEDS ORDERED: HEPARIN 10,000 UNITS/10 ML VIAL ONE (02:46)
[2021-08-19] MEDS ORDERED: ASPIRIN 325 MG TAB ONE (02:46)
[2021-08-19] MEDS ORDERED: CLOPIDOGREL 300 MG TAB ONE (02:46)
[2021-08-19] MEDS ORDERED: NITROGLYCERIN 0.4 MG TAB SUBL SL PRN (04:48)
[2021-08-19 05:38] LABS: Hematocrit 41.4 % (35.5-45.6); Hemoglobin 13.9 gm/dl (11.8-15.2); Mean Corpuscular HGB Conc 34 % (32-34); Mean Corpuscular Volume 94 fl (84-94); Platelet Count 135 K/mm3 (140-440); Red Blood Count 4.42 M/mm3 (3.65-5.03)
[2021-08-19 05:58] LABS: BUN/Creatinine Ratio 8; Blood Urea Nitrogen 10 mg/dL (9-20); Calcium 9.1 mg/dL (8.4-10.2); Hemolysis Index 4
[2021-08-19] MEDS ORDERED: DOLUTEGRAVIR 50 MG TAB PO SCH (10:00)
[2021-08-19] MEDS ORDERED: DOLUTEGRAVIR 50 MG, ABACAVIR 600 MG, lamiVUDine 300 MG PO SCH (10:00)
[2021-08-19] MEDS ORDERED: ABACAVIR 300 MG TAB PO SCH (10:00)
[2021-08-19] MEDS: LISINOPRIL 5 MG TAB PO SCH (10:49)
[2021-08-19] MEDS: CLOPIDOGREL 75 MG TAB PO SCH (10:49)
[2021-08-19] MEDS: ASPIRIN EC 325 MG TAB PO SCH (10:49)
[2021-08-19] MEDS: FAMOTIDINE 20 MG/2 ML INJ IV SCH (10:50)
[2021-08-19 11:12] VITALS: BP 112/79
--- NOTE | 2021-08-19 12:15 | Progress Note ---
Assessment and Plan - Patient Problems (1) Hyperlipidemia Current Visit: Yes Status: Acute (2) STEMI (ST elevation myocardial infarction) Current Visit: Yes Status: Acute Qualifiers: Involved coronary artery: right coronary artery Qualified Code(s): I21.11 - ST elevation (STEMI) myocardial infarction involving right coronary artery Subjective Date of service: 08/19/21 Interval history: NO C/O Objective Vital Signs Temp Pulse Pulse Resp BP Pulse Ox 08/19/21 11:07 98.8 F 66 18 112/79 99 08/19/21 07:47 52 L 100 08/19/21 07:18 99.2 F 52 L 18 126/76 96 08/19/21 04:47 55 L 08/19/21 03:16 98.1 F 55 L 12 119/82 96 08/18/21 23:11 98.9 F 57 L 12 124/80 99 08/18/21 22:00 99 08/18/21 19:38 99.0 F 50 L 16 131/82 99 08/18/21 18:27 98.3 F 51 L 18 131/90 100 08/18/21 17:55 126/78 08/18/21 17:24 51 L 08/18/21 17:01 48 L 13 181/107 98 08/18/21 16:00 51 L 50 L 16 128/83 99 08/18/21 15:00 49 L 21 119/80 99 08/18/21 14:01 46 L 22 128/76 98 08/18/21 13:01 56 L 24 128/76 - Physical Examination General: No Apparent Distress HEENT: Positive: PERRL, Other (U/R) Neck: Positive: neck supple Cardiac: Positive: Reg Rate and Rhythm Lungs: Positive: clear to auscultation Neuro: Positive: Grossly Intact Abdomen: Positive: Soft Skin: Positive: Clear Extremities: Present: normal. Absent: edema - Labs and Meds CBC 08/19/21 Range/Units 05:03 WBC 9.0 (4.5-11.0) K/mm3 RBC 4.42 (3.65-5.03) M/mm3 Hgb 13.9 (11.8-15.2) gm/dl Hct 41.4 (35.5-45.6) % Plt Count 135 L (140-440) K/mm3 Comprehensive Metabolic Panel 08/19/21 Range/Units 04:58 Sodium 139 (137-145) mmol/L Potassium 4.0 (3.6-5.0) mmol/L Chloride 104.1 (98-107) mmol/L Carbon Dioxide 26 (22-30) mmol/L BUN 10 (9-20) mg/dL Creatinine 1.2 (0.8-1.3) mg/dL Glucose 92 (75-100) mg/dL Calcium 9.1 (8.4-10.2) mg/dL - Imaging and Cardiology EKG: report reviewed
--- NOTE | 2021-08-19 14:43 | Discharge Summary ---
Providers - Providers Date of Admission: 08/17/21 16:58 Date of discharge: 08/19/21 Attending physician: MARGIE LUNDBERG 08/17/21 Consult to Cardiac Rehabilitation [CONS] Routine Reason For Exam: post pci 08/17/21 17:50 Consult to Physician [CONS] Urgent Comment: Consulting Provider: LUIS HORN Physician Instructions: Reason For Exam: stemi 08/17/21 18:45 Consult to Physician [CONS] Routine Comment: Consulting Provider: MARCOS COATES Physician Instructions: Reason For Exam: critical care Primary care physician: FIRE INSPECTOR Hospitalization Condition: Stable Pertinent studies: Acute inferior ST elevation myocardial infarction treated with emergency cardiac catheterization and primary angioplasty and stenting of severely occluded right coronary artery. Patient is admitted to the CCU on dual antiplatelet therapy with Plavix and aspirin. Due to extensive intraluminal thrombus, we will also treat him with Aggrastat per protocol for 18 hours. Hospital course: History Interval history: This is a 36-year-old male with HIV who presented to emergency department on 08/17 with complaints of intermittent retrosternal chest pain for the past 3 days with radiation to his left arm, diaphoresis and rated at a 8 on a scale of 1-10. In the emergency department course and he was extubated and cardiology was consulted. Patient was emergently taken to cardiac picket labor union and found to have occlusive stenosis of the right MCA and primary angioplasty was performed with stent placement x2. Patient was admitted to the ICU postop with consult to [facility]. 08/18/2020: Patient does not complain of any chest pain, Aggrastat drip to complete in the early afternoon. Cardiology has cleared the patient to transfer to telemetry today. 08/19/2021 Patient is just very Wants to go home Patient to be discharged on Plavix aspirin Lipitor and lisinopril. This is a 36 year old male with HIV admitted with STEMI s/p PCI and stent placement x2 Neuro: NAD -Analgesics as needed -Reorienation as needed -Avoid delirium -Maintain sleep -wake cycle Cardio: Anterior STEMI -Cardiology consulted, apprecaite recommendations -s/p PCI with stent x2 to RCA -s/p aggrastat gtt -Plavix and Aspirin -Lipitor, lisinopril, -EKG prn -Nitro and Morphine prn for chest pain -Lipid panel WNL Resp: NAD -SpO2 monitoring per protocol -RA -Supplemental oxygenation as needed -[place]man[place] hygenie GI: NAD -cardiac diet -24 hours -38 ml -PPI -BR: Senna : Metabolic acidosis -Voiding into urinal -Trend BMP -Intervene as needed Endo: NAD -Avoid hypoglycemia ID: h/o HIV -restart home meds -f/u with HIV/ID outpatient Heme: NAD -Trend CBC -Transfuse for hbg < 7 -SCDs to BLE while in bed Disposition: 01 HOME / SELF CARE / HOMELESS Final Discharge Diagnosis (Prints w/discharge instructions): STEMI. S/p stent placement. Hypertension. Coronary artery disease. Nicotine dependence Time spent for discharge: 35 - Discharge Diagnoses (1) STEMI (ST elevation myocardial infarction) Status: Acute Qualifiers: Involved coronary artery: right coronary artery Qualified Code(s): I21.11 - ST elevation (STEMI) myocardial infarction involving right coronary artery (2) Elevated troponin Status: Acute (3) DVT prophylaxis Status: Acute (4) Advance care planning Status: Acute Core Measure Documentation - Palliative Care Palliative Care/ Comfort Measures: Not Applicable - Core Measures Any of the following diagnoses?: none Exam - Constitutional Vitals: Temp Pulse Resp BP Pulse Ox 98.8 F 66 18 112/79 99 08/19/21 11:07 08/19/21 11:07 08/19/21 11:07 08/19/21 11:07 08/19/21 11:07 General appearance: Present: no acute distress, well-nourished - EENT Eyes: Present: PERRL ENT: hearing intact, clear oral mucosa - Neck Neck: Present: supple, normal ROM - Respiratory Respiratory effort: normal Respiratory: bilateral: CTA - Cardiovascular Heart rate: 78 Rhythm: regular Heart Sounds: Present: S1 & S2. Absent: rub, click - Extremities Extremities: no ischemia, pulses intact, pulses symmetrical, No edema Peripheral Pulses: within normal limits - Abdominal General gastrointestinal: Present: soft, non-tender, non-distended, normal bowel sounds Male genitourinary: Present: normal - Integumentary Integumentary: Present: clear, warm, dry - Musculoskeletal Musculoskeletal: gait normal, strength equal bilaterally - Psychiatric Psychiatric: appropriate mood/affect, intact judgment & insight - Neurologic Neurologic: CNII-XII intact, moves all extremities Plan Activity: no restrictions Diet: low salt Follow up with: PRIMARY CARE, [Primary Care Provider] - 7 Days
== END 2021-08-19 16:26 | disposition home or self-care (01) | DRG 247 ==
LOC: ED 12:51 → CC1 16:58 → 4A 08-18 18:49
PROVIDERS: ADMIT Internal Medicine; ATTEND Internal Medicine
PROC: 027034Z Dilation of Coronary Artery, One Artery with Drug-eluting Intraluminal Device, Percutaneous Approach (ICD-10-PCS; principal; 2021-08-17)
PROC: 4A023N7 Measurement of Cardiac Sampling and Pressure, Left Heart, Percutaneous Approach (ICD-10-PCS; 2021-08-17)
PROC: B2111ZZ Fluoroscopy of Multiple Coronary Arteries using Low Osmolar Contrast (ICD-10-PCS; 2021-08-17)
PROC: B2151ZZ Fluoroscopy of Left Heart using Low Osmolar Contrast (ICD-10-PCS; 2021-08-17)
DX: I21.11 ST elevation (STEMI) myocardial infarction involving right coronary artery (principal); B20 Human immunodeficiency virus [HIV] disease; E87.2 Acidosis; E78.5 Hyperlipidemia, unspecified
CPT/HCPCS: 36415; 71045; 71046; 80048; 80061; 83735; 84100; 84484; 85025; 85027; 85610; 85730; 86850; 86900; 86901; 92941; 93005; 93458; 99291; G0378; J3490; Q0162; C1725; C1769; C1874; C1887; C1894; C9606; J0461; J1644; J2250; J2405; J3010; J3246; J7030; Q9967